=== PATIENT | male | born 1965 | race Caucasian/White ===

== ENCOUNTER 2018-09-27 06:22 | Emergency (ER) | payer SELFPAY ==
[~2018-09-27] VITALS: Ht 177.8 cm; Wt 79.4 kg
[2018-09-27 06:31] VITALS: BP 131/86
== END 2018-09-27 06:55 | disposition home or self-care (01) ==
LOC: ER 06:24
DX: L03.811 Cellulitis of head [any part, except face] (principal); L03.116 Cellulitis of left lower limb

== ENCOUNTER 2018-10-13 00:59 | Emergency (ER) | payer SELFPAY ==
[~2018-10-13] VITALS: Ht 180.3 cm; Wt 77.1 kg
--- NOTE | 2018-10-13 01:10 | NUR ---
PT BIBSELF COMPLAINING OF NECK AND CALF INFECTION X 3 WEEKS, PT STATES HE CAME TO [facility] AND WAS DX WITH MRSA INFECTION, TOOK CLINDAMYCIN BUT IT GOT WORSE. PT AXO4. RESPIRATIONS EVEN AND UNLABORED. REDNESS ON NECK AND CALF NOTED. 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
[2018-10-13] MEDS ORDERED: SULFAMETH/TRIMETH 800/160 MG 1 UDTAB TABLET PO ONE ×2 (01:57→02:00)
[2018-10-13] MEDS ORDERED: VANCOMYCIN 1 GM VIAL ONE (01:57)
[2018-10-13] MEDS ORDERED: VANCOMYCIN 1 GM in IV D5W 250 ML IV ONE (02:00)
--- NOTE | 2018-10-13 02:00 | NUR ---
PT RESTING IN BED, NAD NOTED. WILL CONTINUE TO MONITOR.
[2018-10-13 03:24] VITALS: BP 128/90
--- NOTE | 2018-10-13 03:25 | NUR ---
Patient discharged to home in stable condition. Written and verbal after care instructions given. Patient verbalizes understanding of instruction. IV removed. Catheter intact and site benign. Pressure and 4x4 applied to site. No bleeding noted.
== END 2018-10-13 03:26 | disposition home or self-care (01) ==
LOC: ER 01:01
DX: R21 Rash and other nonspecific skin eruption (principal)
CPT/HCPCS: 96365; 99283; J3370

== ENCOUNTER 2018-10-13 23:34 | Emergency (ER) | payer SELFPAY ==
[~2018-10-13] VITALS: Ht 180.3 cm; Wt 77.1 kg
--- NOTE | 2018-10-13 23:50 | NUR ---
PT PRESENTED TO THE ER WITH A C/O NECK AND L CALF RASH/ MRSA. PT WAS HERE YESTERDAY AND WAS SEEN BY DR CHATTERJEE WHO INSTRUCTED THE PT TO RETURN FOR ANOTHER DOSE OF VANCOMYCIN IV. PT AMBULATED TO ER #13 WITH A STEADY GAIT.
[2018-10-13] MEDS ORDERED: VANCOMYCIN 1 GM VIAL ONE (23:59)
[2018-10-14] MEDS ORDERED: VANCOMYCIN 1 GM in IV D5W 250 ML IV ONE ×2
--- NOTE | 2018-10-14 00:10 | NUR ---
PT REC'D MEDICATION ORDERED.
--- NOTE | 2018-10-14 01:10 | NUR ---
WOUND CARE DONE BY FAUSTO DUMONT. NON ADHERENT DRSG AND BORDER BANDAGE APPLIED TO WOUND
--- NOTE | 2018-10-14 01:19 | NUR ---
ANTIBIOTIC FINISHED. IV removed. Catheter intact and site benign. Pressure and 4x4 applied to site. No bleeding noted. Patient discharged to home in stable condition. Written and verbal after care instructions given. Patient verbalizes understanding of instruction. PT TO FINISH THE ANTIBIOTIC HE STARTED YESTERDAY. PT AMBULATED OUT WITH A STEADY GAIT.
[2018-10-14 01:21] VITALS: BP 120/77
== END 2018-10-14 01:21 | disposition home or self-care (01) ==
LOC: ER 23:36
DX: R23.4 Changes in skin texture (principal); F11.10 Opioid abuse, uncomplicated; Z59.0 Homelessness; Z86.14 Personal history of Methicillin resistant Staphylococcus aureus infection; Z02.89 Encounter for other administrative examinations
CPT/HCPCS: 96365; 99283; A6403; J3370

== ENCOUNTER 2018-10-31 05:50 | Emergency (ER) | payer MEDICAID ==
[~2018-10-31] VITALS: Ht 180.3 cm; Wt 79.4 kg
[2018-10-31 05:58] VITALS: BP 130/61
--- NOTE | 2018-10-31 05:58 | NUR ---
PT BIBSELF C/O "STAPH INFECTION" TO BACK OF HEAD. PATIENT STATES SEEN HERE FOR SAME ISSUE A FEW TIMES OVER LAST MONTH, ANTIBIOTICS NOT WORKING. PT IS AAOX4, NOT IN RESPIRATORY DISTRESS ,KEPT RESTED AND COMFORTABLE, WILL CONTINUE TO MONITOR.
--- NOTE | 2018-10-31 06:06 | NUR ---
DR. KING AT BEDSIDE FOR EVAL.
--- NOTE | 2018-10-31 06:16 | NUR ---
Patient discharged to home in stable condition. Written and verbal after care instructions given. Patient verbalizes understanding of instruction.
== END 2018-10-31 06:17 | disposition home or self-care (01) ==
LOC: ER 05:53
DX: S11.90XA Unspecified open wound of unspecified part of neck, initial encounter (principal); X58.XXXA Exposure to other specified factors, initial encounter; Y93.89 Activity, other specified; Y92.89 Other specified places as the place of occurrence of the external cause; Y99.8 Other external cause status